=== PATIENT | male | born 1970 | race Caucasian/White ===

== ENCOUNTER 2021-02-09 08:49 | Inpatient (IN) ==
[2021-02-09] MEDS ORDERED: SODIUM CHLORIDE 0.9% 1,000 ML IV STA (09:12)
[2021-02-09 10:05] LABS: Basophils % 0.2 % (0.0-0.8); Hematocrit 42.9 VOL% (42.0-52.0); Hemoglobin 14.7 GM/DL (14.0-18.0); Immature Granulocytes % 0.4 %; Immature Granulocytes Absolute 0.02 #; Lymphocytes # 0.8 10*3/uL (1.4-4.0); Lymphocytes % 17.1 % (21.2-54.2); Mean Corpuscular HGB Conc 34.3 GM/DL (32-36); Mean Corpuscular Volume 86.8 FL (87-102); Mean Platelet Volume 10.3 FL (9.6-12.0); Monocytes % 10.3 % (1.7-12.7); Platelet Count 166 T/CUMM (130-400); Red Blood Count 4.94 MC/CUMM (3.8-5.5); White Blood Count 4.5 T/CUMM (4-12)
[2021-02-09 10:23] LABS: Albumin 3.4 G/DL (3.4-5.0); Bilirubin,Total 0.8 MG/DL (0.20-1.00); Calcium 8.8 MG/DL (8.5-10.1); Osmolality,Calculated 260.9 MOS/KG (273-304); Potassium 3.7 MMOL/L (3.5-5.1); Total Protein 7.4 G/DL (6.4-8.2)
[2021-02-09 10:24] LABS: Lymphocytes 12 % (20-55); Platelet Estimate Adequate; Segmented Neutrophils 77 % (50-85); Total Cells Counted 100
[2021-02-09 10:25] LABS: Hypochromasia 1+; Microcytosis 1+
[2021-02-09 10:27] LABS: Ferritin 1327.1 ng/ml (26-388)
[2021-02-09] MEDS ORDERED: cefTRIAXone 1,000 MG in SODIUM CHLORIDE 0.9% 100 ML IV STA (10:54)
[2021-02-09] MEDS ORDERED: DEXAMETHASONE 4 MG/1 ML VIAL IV STA (10:54)
[2021-02-09] MEDS ORDERED: IVERMECTIN 3 MG TABLET PO ONE (11:32)
[2021-02-09] MEDS ORDERED: GLUCAGON 1 MG VIAL IM PRN (12:21)
[2021-02-09] MEDS ORDERED: ONDANSETRON 4 MG/2 ML VIAL IV PRN (12:21)
[2021-02-09] MEDS ORDERED: ACETAMINOPHEN 325 MG TABLET PO PRN (12:21)
[2021-02-09] MEDS ORDERED: DEXTROSE 50% 25 GM/50 ML VIAL IV PRN (12:21)
[2021-02-09] MEDS ORDERED: MELATONIN 3 MG TABLET PO PRN (12:25)
[2021-02-09] MEDS ORDERED: cefTRIAXone 1,000 MG in SODIUM CHLORIDE 0.9% 100 ML IV SCH (13:00)
[2021-02-09] MEDS ORDERED: REMDESIVIR 200 MG in SODIUM CHLORIDE 0.9% 210 ML IV ONE (14:00)
[2021-02-09] MEDS: FAMOTIDINE 20 MG TABLET PO SCH ×2 (14:11→20:39)
[2021-02-09] MEDS: ASCORBIC ACID 500 MG TABLET PO SCH ×2 (14:11→20:39)
[2021-02-09] MEDS: ENOXAPARIN 40 MG/0.4 ML SYRINGE SUBCUT SCH (14:11)
[2021-02-09] MEDS: SODIUM CHLORIDE 0.9% 1,000 ML IV SCH (14:11)
[2021-02-09] MEDS: AZITHROMYCIN 250 MG TABLET PO SCH (14:12)
[2021-02-09] MEDS: CETIRIZINE 10 MG TABLET PO SCH (14:12)
[2021-02-09] MEDS: ZINC GLUCONATE 50 MG TABLET PO SCH (14:12)
[2021-02-09] MEDS: CHOLECALCIFEROL 1,000 UNIT TABLET PO SCH (14:12)
[2021-02-10] MEDS: ENOXAPARIN 40 MG/0.4 ML SYRINGE SUBCUT SCH ×3 (00:04→13:24)
[2021-02-10] MEDS: SODIUM CHLORIDE 0.9% 1,000 ML IV SCH ×2 (01:16→14:49)
[2021-02-10 06:49] LABS: Hematocrit 43.5 VOL% (42.0-52.0); Hemoglobin 14.3 GM/DL (14.0-18.0); Immature Granulocytes % 0.5 %; Immature Granulocytes Absolute 0.02 #; Lymphocytes # 0.6 10*3/uL (1.4-4.0); Lymphocytes % 14.4 % (21.2-54.2); Mean Corpuscular HGB Conc 32.9 GM/DL (32-36); Monocytes % 11.9 % (1.7-12.7); Neutrophils % 73.2 % (38.7-73.9); Platelet Count 158 T/CUMM (130-400); Red Blood Count 4.78 MC/CUMM (3.8-5.5); Red Cell Distribution Width 13.2 % (9.3-17.3)
[2021-02-10 07:14] LABS: Albumin 2.9 G/DL (3.4-5.0); Bilirubin,Total 0.8 MG/DL (0.20-1.00); Osmolality,Calculated 277.8 MOS/KG (273-304); Potassium 4.3 MMOL/L (3.5-5.1); Total Protein 6.8 G/DL (6.4-8.2)
[2021-02-10 07:23] LABS: Ferritin 1219.4 ng/ml (26-388)
[2021-02-10 07:35] LABS: Albumin 2.8 G/DL (3.4-5.0); Bilirubin,Direct 0.12 MG/DL (0.0-0.20); Bilirubin,Indirect 0.9 MG/DL (0.0-1.0); Total Protein 6.8 G/DL (6.4-8.2)
[2021-02-10] MEDS ORDERED: DEXAMETHASONE 4 MG/1 ML VIAL IV SCH (09:00)
[2021-02-10] MEDS ORDERED: DEXAMETHASONE 10 MG/1 ML VIAL IV SCH (09:00)
[2021-02-10] MEDS: AZITHROMYCIN 250 MG TABLET PO SCH (09:15)
[2021-02-10] MEDS: ZINC GLUCONATE 50 MG TABLET PO SCH (09:15)
[2021-02-10] MEDS: ASCORBIC ACID 500 MG TABLET PO SCH ×2 (09:15→20:50)
[2021-02-10] MEDS: PANTOPRAZOLE 40 MG TABLET PO SCH (09:15)
[2021-02-10] MEDS: CHOLECALCIFEROL 1,000 UNIT TABLET PO SCH (09:15)
[2021-02-10] MEDS: CETIRIZINE 10 MG TABLET PO SCH (09:15)
[2021-02-10] MEDS: FAMOTIDINE 20 MG TABLET PO SCH ×2 (09:15→20:50)
[2021-02-10] MEDS ORDERED: LOPERAMIDE 2 MG CAPSULE PO PRN (09:33)
[2021-02-10] MEDS ORDERED: cefTRIAXone 1,000 MG in SODIUM CHLORIDE 0.9% 100 ML IV SCH (11:00)
[2021-02-10] MEDS ORDERED: cefTRIAXone 2,000 MG in SODIUM CHLORIDE 0.9% 100 ML IV SCH (11:00)
[2021-02-10] MEDS: REMDESIVIR 100 MG in SODIUM CHLORIDE 0.9% 100 ML IV SCH (11:07)
[2021-02-10 12:10] LABS: Lymphocytes 15 % (20-55); Metamyelocytes 1 %; Platelet Estimate Adequate; Segmented Neutrophils 69 % (50-85); Total Cells Counted 100
[2021-02-10] MEDS ORDERED: ALBUTEROL INHALER 18 GM INH PRN (20:07)
[2021-02-10] MEDS: guaiFENesin/CODEINE 5 ML LIQUID PO PRN (23:17)
[2021-02-11 05:52] LABS: Basophils % 0.2 % (0.0-0.8); Hematocrit 37.8 VOL% (42.0-52.0); Hemoglobin 12.6 GM/DL (14.0-18.0); Immature Granulocytes % 0.5 %; Immature Granulocytes Absolute 0.03 #; Lymphocytes # 0.5 10*3/uL (1.4-4.0); Lymphocytes % 9.1 % (21.2-54.2); Mean Corpuscular HGB Conc 33.3 GM/DL (32-36); Mean Corpuscular Volume 91.1 FL (87-102); Mean Platelet Volume 10.6 FL (9.6-12.0); Monocytes % 10.9 % (1.7-12.7); Neutrophils % 79.3 % (38.7-73.9); Platelet Count 196 T/CUMM (130-400); Red Blood Count 4.15 MC/CUMM (3.8-5.5); Red Cell Distribution Width 13.3 % (9.3-17.3); White Blood Count 5.5 T/CUMM (4-12)
[2021-02-11 06:06] LABS: Calcium 8.2 MG/DL (8.5-10.1); Osmolality,Calculated 280.5 MOS/KG (273-304); Potassium 3.8 MMOL/L (3.5-5.1)
[2021-02-11 06:14] LABS: Alanine Aminotransferase 50 U/L (16-61); Albumin 2.7 G/DL (3.4-5.0); Alkaline Phosphatase 45 U/L (45-117); Aspartate Amino Transferase 48 U/L (0-37); Bilirubin,Direct < 0.100 MG/DL (0.0-0.20); Bilirubin,Indirect 0.9 MG/DL (0.0-1.0); Total Protein 6.3 G/DL (6.4-8.2)
[2021-02-11] MEDS: SODIUM CHLORIDE 0.9% 1,000 ML IV SCH (10:24)
[2021-02-11] MEDS: REMDESIVIR 100 MG in SODIUM CHLORIDE 0.9% 100 ML IV SCH (10:26)
[2021-02-11] MEDS: CHOLECALCIFEROL 1,000 UNIT TABLET PO SCH (10:28)
[2021-02-11] MEDS: AZITHROMYCIN 250 MG TABLET PO SCH (10:29)
[2021-02-11] MEDS: ENOXAPARIN 40 MG/0.4 ML SYRINGE SUBCUT SCH (10:30)
[2021-02-11] MEDS: DEXAMETHASONE 4 MG TABLET PO SCH (10:30)
[2021-02-11] MEDS: ASCORBIC ACID 500 MG TABLET PO SCH ×2 (10:30→20:23)
[2021-02-11] MEDS: CETIRIZINE 10 MG TABLET PO SCH (10:31)
[2021-02-11] MEDS: PANTOPRAZOLE 40 MG TABLET PO SCH (10:31)
[2021-02-11] MEDS: ZINC GLUCONATE 50 MG TABLET PO SCH (10:31)
[2021-02-11] MEDS: FAMOTIDINE 20 MG TABLET PO SCH ×2 (10:32→20:23)
[2021-02-11] MEDS: guaiFENesin/CODEINE 5 ML LIQUID PO PRN (20:23)
[2021-02-12] MEDS: SODIUM CHLORIDE 0.9% 1,000 ML IV SCH ×2 (02:15→10:40)
[2021-02-12 06:29] LABS: Hematocrit 37.9 VOL% (42.0-52.0); Hemoglobin 12.6 GM/DL (14.0-18.0); Immature Granulocytes % 0.9 %; Immature Granulocytes Absolute 0.05 #; Lymphocytes # 0.8 10*3/uL (1.4-4.0); Lymphocytes % 13.3 % (21.2-54.2); Mean Corpuscular HGB Conc 33.2 GM/DL (32-36); Mean Corpuscular Volume 91.3 FL (87-102); Mean Platelet Volume 10.4 FL (9.6-12.0); Monocytes % 13.3 % (1.7-12.7); Neutrophils % 72.5 % (38.7-73.9); Platelet Count 218 T/CUMM (130-400); Red Blood Count 4.15 MC/CUMM (3.8-5.5); Red Cell Distribution Width 13.2 % (9.3-17.3); White Blood Count 5.8 T/CUMM (4-12)
[2021-02-12 06:47] LABS: Albumin 2.7 G/DL (3.4-5.0); Bilirubin,Direct 0.11 MG/DL (0.0-0.20); Bilirubin,Indirect 1.2 MG/DL (0.0-1.0); Bilirubin,Total 1.3 MG/DL (0.20-1.00); Total Protein 6.1 G/DL (6.4-8.2)
[2021-02-12 07:01] LABS: Calcium 8.5 MG/DL (8.5-10.1); Osmolality,Calculated 278.7 MOS/KG (273-304); Potassium 4.1 MMOL/L (3.5-5.1)
[2021-02-12 07:02] LABS: Hypochromasia 1+; Lymphocytes 4 % (20-55); Microcytosis 1+; Platelet Estimate Adequate; Segmented Neutrophils 80 % (50-85); Total Cells Counted 100
[2021-02-12] MEDS: REMDESIVIR 100 MG in SODIUM CHLORIDE 0.9% 100 ML IV SCH (09:28)
[2021-02-12] MEDS: ZINC GLUCONATE 50 MG TABLET PO SCH (09:29)
[2021-02-12] MEDS: CHOLECALCIFEROL 1,000 UNIT TABLET PO SCH (09:29)
[2021-02-12] MEDS: CETIRIZINE 10 MG TABLET PO SCH (09:29)
[2021-02-12] MEDS: PANTOPRAZOLE 40 MG TABLET PO SCH (09:29)
[2021-02-12] MEDS: ASCORBIC ACID 500 MG TABLET PO SCH (09:29)
[2021-02-12] MEDS: AZITHROMYCIN 250 MG TABLET PO SCH (09:29)
[2021-02-12] MEDS: FAMOTIDINE 20 MG TABLET PO SCH (09:29)
[2021-02-12] MEDS: DEXAMETHASONE 4 MG TABLET PO SCH (09:30)
[2021-02-12 10:21] VITALS: BP 143/89
== END 2021-02-12 13:55 | disposition home or self-care (01) | DRG 177 ==
LOC: N.ED 08:49 → N.EDINP 12:21 → SUATTDRO 12:21 → N.2E 16:59
PROVIDERS: ADMIT Emergency Medicine; ATTEND Hospitalist